=== PATIENT | male | born 1990 | race Native Hawaiian/Other Pacific Islander ===

== ENCOUNTER 2017-07-03 04:37 | Outpatient (CLI) | payer OTHER | END 2017-07-03 05:00 | disposition short-term general hospital (02) | LOC: AMB 04:37 | DX: T20.16XA Burn of first degree of forehead and cheek, initial encounter (principal); T31.0 Burns involving less than 10% of body surface; W40.8XXA Explosion of other specified explosive materials, initial encounter; Y92.098 Other place in other non-institutional residence as the place of occurrence of the external cause | CPT/HCPCS: A0425; A0429 ==

== ENCOUNTER 2017-07-03 05:01 | Emergency (ER) | payer OTHER ==
[~2017-07-03] VITALS: Ht 182.9 cm; Wt 74.8 kg
== END 2017-07-03 05:52 | disposition home or self-care (01) ==
LOC: ED 05:01
DX: T20.16XA Burn of first degree of forehead and cheek, initial encounter (principal); T26.02XA Burn of left eyelid and periocular area, initial encounter; T26.01XA Burn of right eyelid and periocular area, initial encounter; T31.0 Burns involving less than 10% of body surface; W40.8XXA Explosion of other specified explosive materials, initial encounter; Y92.098 Other place in other non-institutional residence as the place of occurrence of the external cause
CPT/HCPCS: 99283; J7040